=== PATIENT | female | born 1980 | race Caucasian/White ===

== ENCOUNTER 2017-01-19 06:16 | Emergency (ER) | payer SELFPAY ==
[~2017-01-19] VITALS: Ht 170.2 cm; Wt 64.0 kg
[2017-01-19 06:19] VITALS: BP 134/77; PULSE 86; RESP 16; TEMP 97.4; O2SAT 100
[2017-01-19] MEDS ORDERED: ALBUAER3 INH (06:42)
[2017-01-19] MEDS ORDERED: LISI10TA3 PO (06:42)
[2017-01-19] MEDS ORDERED: MONT10TA2 PO (06:42)
[2017-01-19] MEDS ORDERED: PROP10TA6 PO (06:42)
[2017-01-19] MEDS ORDERED: ALBU1.25 NEB (06:42)
[2017-01-19] MEDS ORDERED: SODIUM CHLOR 0.9% 1000 ML INJ 1,000 ML IV ONE (07:15)
[2017-01-19 07:29] VITALS: BP 107/59; PULSE 76; RESP 16; TEMP 98.2; O2SAT 98
[2017-01-19] MEDS ORDERED: PANTOPRAZOLE SODIUM 40 MG VIAL IV PUSH ONE (07:30)
[2017-01-19 07:34] LABS: AUTOMATED NEUTROPHIL # 3.6 TH/MM3 (1.8-7.7); BASOPHIL # 0.1 TH/MM3 (0-0.2); BASOPHIL % 1.1 % (0.0-2.0); EOSINOPHIL # 0.5 TH/MM3 (0-0.4); EOSINOPHIL % 5.9 % (0.0-4.0); HEMATOCRIT 40.8 % (35.0-46.0); HEMO FLAGS DIFF FINAL; LYMPH % 40.1 % (9.0-44.0); LYMPHOCYTE # 3.4 TH/MM3 (1.0-4.8); MEAN CELL VOLUME 90.3 FL (80.0-100.0); MEAN CORPUSCULAR HEMOGLOBIN 31.2 PG (27.0-34.0); MEAN CORPUSCULAR HGB CONC 34.6 % (32.0-36.0); MONO % 10.6 % (0.0-8.0); NEUT % 42.3 % (16.0-70.0); PLATELET COUNT 297 TH/MM3 (150-450); RED BLOOD COUNT 4.52 MIL/MM3 (4.00-5.30); RED CELL DISTRIBUTION WIDTH 13.5 % (11.6-17.2); WHITE BLOOD COUNT 8.5 TH/MM3 (4.0-11.0)
--- NOTE | 2017-01-19 07:40 | PD ---
HPI Chief Complaint: GI Complaint Time Seen by Provider: 07:00 Travel History International Travel<30 days: No Contact w/Intl Traveler<30days: No Traveled to known affect area: No History of Present Illness HPI 36-year-old female presents with left upper quadrant pain that is intermittent with nonbloody diarrhea. She states this week she went to [facility] and they did blood work and CAT scan and advised her to follow with the primary care physician. She states she was provided tramadol but the pharmacist told her not to take it with her morphine allergy. She states she doesn't know what she can take for the pain. She states she can't go to the doctor so she comes to the emergency room She doesn't want to lose her job. She states that ibuprofen at home is not helping. She states she currently is on her menstrual cycle. She denies specific modifying factors. Pain now is nearly resolved. Duration is past week or so. PFSH Past Medical History Asthma: Yes Cardiovascular Problems: Yes (HTN) Diminished Hearing: No Hypertension: Yes Kidney Stones: Yes Medical other: Yes (liver damage ) Respiratory: Yes (ASTHMA) Tetanus Vaccination: < 5 Years Influenza Vaccination: No ?: Not LMP: 01/18/2017 : 0 Past Surgical History Gynecologic Surgery: Yes (left oophorectomy due to rupture, then bleed with the oophorectomy) Other Surgery: Yes (cyst removed from my thyroid) Social History Alcohol Use: No Tobacco Use: Yes (1 ppd) Substance Use: No Allergies-Medications (Allergen,Severity, Reaction): Coded Allergies: Azithromycin (Verified Allergy, Unknown, 01/19/17) Morphine (Verified Allergy, Unknown, 01/19/17) Reported Meds & Prescriptions Reported Meds & Active Scripts Active Protonix (Pantoprazole Sodium) 40 Mg Tab 40 Mg PO DAILY Reported Propranolol (Propranolol HCl) 10 Mg Tab 10 Mg PO DAILY Singulair (Montelukast Sodium) 10 Mg Tab 10 Mg PO HS Albuterol Neb (Albuterol Sulfate) 1.25 Mg/3 Ml Neb 1.25 Mg NEB QID NEB PRN Proair Hfa 8.5 GM Inh (Albuterol Sulfate) 90 Mcg/Act Aer 2 Puff INH Q4-6H PRN 108 mcg/actuation Lisinopril 10 Mg Tab 10 Mg PO DAILY Review of Systems Except as stated in HPI: all other systems reviewed are Neg Physical Exam Narrative GENERAL: Well-nourished, well-developed patient. Well-appearing SKIN: Warm and dry. HEAD: Normocephalic and atraumatic. EYES: No injection or drainage. ENT: No nasal drainage noted. NECK: Supple, trachea midline. CARDIOVASCULAR: Regular rate and rhythm RESPIRATORY: No increased effort. No accessory muscle use. GASTROINTESTINAL: Abdomen soft, non-tender, nondistended. NEUROLOGICAL: Awake and alert. Motor and sensory grossly within normal limits. Normal speech. Data Data Last Documented VS Vital Signs Date Time Temp Pulse Resp B/P Pulse Ox O2 Delivery O2 Flow Rate FiO2 01/19/17 07:29 98.2 76 16 107/59 98 Room Air Orders Complete Blood Count With Diff (01/19/17 07:01) Comprehensive Metabolic Panel (01/19/17 07:01) Lipase (01/19/17 07:01) Iv Access Insert/Monitor (01/19/17 07:01) Ed Urine Pregnancytest Poc (01/19/17 07:01) Sodium Chlor 0.9% 1000 Ml Inj (Ns 1000 M (01/19/17 07:15) Pantoprazole Inj (Protonix Inj) (01/19/17 07:30) Labs Laboratory Tests Test 01/19/17 07:20 White Blood Count 8.5 TH/MM3 Red Blood Count 4.52 MIL/MM3 Hemoglobin 14.1 GM/DL Hematocrit 40.8 % Mean Corpuscular Volume 90.3 FL Mean Corpuscular Hemoglobin 31.2 PG Mean Corpuscular Hemoglobin 34.6 % Concent Red Cell Distribution Width 13.5 % Platelet Count 297 TH/MM3 Mean Platelet Volume 9.9 FL Neutrophils (%) (Auto) 42.3 % Lymphocytes (%) (Auto) 40.1 % Monocytes (%) (Auto) 10.6 % Eosinophils (%) (Auto) 5.9 % Basophils (%) (Auto) 1.1 % Neutrophils # (Auto) 3.6 TH/MM3 Lymphocytes # (Auto) 3.4 TH/MM3 Monocytes # (Auto) 0.9 TH/MM3 Eosinophils # (Auto) 0.5 TH/MM3 Basophils # (Auto) 0.1 TH/MM3 CBC Comment DIFF FINAL Differential Comment Sodium Level 137 MEQ/L Potassium Level 3.9 MEQ/L Chloride Level 104 MEQ/L Carbon Dioxide Level 23.8 MEQ/L Anion Gap 9 MEQ/L Blood Urea Nitrogen 15 MG/DL Creatinine 0.97 MG/DL Estimat Glomerular Filtration 65 ML/MIN Rate Random Glucose 89 MG/DL Calcium Level 8.7 MG/DL Total Bilirubin 0.2 MG/DL Aspartate Amino Transf 13 U/L (AST/SGOT) Alanine Aminotransferase 19 U/L (ALT/SGPT) Alkaline Phosphatase 43 U/L Total Protein 7.1 GM/DL Albumin 3.9 GM/DL Lipase 206 U/L [facility] Medical Decision Making Medical Screen Exam Complete: Yes Emergency Medical Condition: Yes Medical Record Reviewed: Yes (past history confirmed) Interpretation(s) CBC & BMP Diagram 01/19/17 07:20 Differential Diagnosis Gastroenteritis, pancreatitis, gastritis, menses Narrative Course Will check labs, urine and dose with IV fluids and Protonix and reevaluate labs wnl, Patient denies any new complaints and states that they are feeling better. Patient happy with care, all questions answered. Patient knows that follow up is incumbent on them and to return to the emergency room immediately if new or worsening symptoms develop. Patient given strict return precautions, vitals reviewed and are normal, agrees to further workup as an outpatient. Diagnosis Primary Impression: Abdominal pain Qualified Code: R10.12 - Left upper quadrant pain Additional Impression: Diarrhea Qualified Code: R19.7 - Diarrhea, unspecified type Patient Instructions: General Instructions Additional Instructions: return as needed, follow with primary, keep hydrated, tylenol as needed Med/Other Pt SpecificInfo: Prescription(s) given Scripts Pantoprazole (Protonix)40 Mg Tab40 Mg PO DAILY #30 TAB Ref 0 Prov:Ella Gama MD 01/19/17 Disposition: 01 DISCHARGE HOME Condition: Stable Ella Gama MD Jan 19, 2017 07:40
[2017-01-19 07:53] LABS: ALT (GPT) 19 U/L (10-53); ANION GAP 9 MEQ/L (5-15); AST (GOT) 13 U/L (15-37); BICARBONATE 23.8 MEQ/L (21.0-32.0); BLOOD UREA NITROGEN 15 MG/DL (7-18); CHLORIDE 104 MEQ/L (98-107); GLOMERULAR FILTRATION RATE 65 ML/MIN (>89); POTASSIUM 3.9 MEQ/L (3.5-5.1); SODIUM (NA) 137 MEQ/L (136-145)
[2017-01-19 07:55] LABS: ALKALINE PHOSPHATASE 43 U/L (45-117); TOTAL BILIRUBIN ADULT 0.2 MG/DL (0.2-1.0)
[2017-01-19] MEDS ORDERED: PROT40TA PO (09:10)
== END 2017-01-19 09:21 | disposition home or self-care (01) ==
LOC: NEPC 06:16
DX: R10.12 Left upper quadrant pain (principal); R19.7 Diarrhea, unspecified
CPT/HCPCS: 80053; 83690; 84703; 85025; 96361; 96374; 99284; C9113; J7030